=== PATIENT | male | born 1950 | race Caucasian/White ===

== ENCOUNTER 2017-06-19 14:47 | Emergency (ER) | payer MEDICARE, MEDICAID ==
[2017-06-19] MEDS ORDERED: NORMAL SALINE 1000 ML 1,000 ML IV ONE (15:06)
--- NOTE | 2017-06-19 15:11 | ER Document Report ---
ED Medical Screen (RME) - General Chief Complaint: Vomiting Stated Complaint: DIFFICULTY SWALLOWING Time Seen by Provider: 06/19/17 15:05 Notes: Patient states several weeks ago he went to his physician for trouble breathing. He states that his physician told him that he had "fluid on his lungs" and gave him an antibiotic. It was Levaquin. He states he then also received the flu shot. He states after this he had 3 or 4 days where he was very tired, slept all the time, and did not eat. He states he has lost approximately 15 pounds over the last several weeks. He states he continues to have some shortness of breath. He continues to be weak/dec appetite. He states that approximately 3 days ago his teeth were hurting and so he did not chew his food very well and believes some may become lodged. The following day he tried a couple bites of hot dog and then vomited up copious amounts of cylindrically formed substance. He states it appeared it was undigested food compacted into a cylinder shape. He states he is now having vomiting with any intake and is vomiting white foam. He also has epi/lower cp. +smoker/denies etoh. denies chronic med problems. TRAVEL OUTSIDE OF THE [place] IN LAST 30 DAYS: No - Related Data Allergies/Adverse Reactions: Penicillins Allergy (Unknown, Verified 06/19/17 14:50) Past Medical History - Past Medical History Cardiac Medical History: Reports: Hx Hypertension - MEDS Denies: Hx Coronary Artery Disease, Hx Heart Attack Pulmonary Medical History: Reports: Hx Asthma, Hx COPD, Hx Pneumonia Denies: Hx Bronchitis Neurological Medical History: Denies: Hx Cerebrovascular Accident, Hx Seizures Renal/ Medical History: Denies: Hx Peritoneal Dialysis Musculoskeltal Medical History: 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 HAND - Immunizations Hx Diphtheria, Pertussis, Tetanus Vaccination: Yes Physical Exam - Vital signs Vitals: Temp Pulse Resp BP Pulse Ox 98.2 F 95 20 133/70 H 99 06/19/17 14:50 06/19/17 14:50 06/19/17 14:50 06/19/17 14:50 06/19/17 14:50 Course - Vital Signs Vital signs: Temp Pulse Resp BP Pulse Ox 98.2 F 95 20 133/70 H 99 06/19/17 14:50 06/19/17 14:50 06/19/17 14:50 06/19/17 14:50 06/19/17 14:50
[2017-06-19 15:53] LABS: HEMATOCRIT 20.5 % (37.9-51.0); HGB HCT DIFFERENCE 0.5; MEAN CORPUSCULAR HEMOGLOBIN 37.4 pg (27.0-33.4); MEAN CORPUSCULAR HGB CONC 34.3 g/dL (32.0-36.0); MEAN CORPUSCULAR VOLUME 109 fl (80-97); RED BLOOD COUNT 1.88 10^6/uL (4.35-5.55); RED CELL DISTRIBUTION WIDTH 20.1 % (11.5-14.0); WHITE BLOOD COUNT 12.5 10^3/uL (4.0-10.5)
[2017-06-19 16:09] LABS: ALANINE AMINOTRANSFERASE 39 U/L (21-72); ALBUMIN 3.7 g/dL (3.5-5.0); ALKALINE PHOSPHATASE 47 U/L (38-126); ANION GAP 12 (5-19); ASPARTATE AMINO TRANSFERASE 21 U/L (17-59); BILIRUBIN,DIRECT 0.5 mg/dL (0.0-0.4); BILIRUBIN,TOTAL 1.1 mg/dL (0.2-1.3); BLOOD UREA NITROGEN 24 mg/dL (7-20); CARBON DIOXIDE 26 mmol/L (22-30); CHLORIDE 106 mmol/L (98-107); CREATININE RESULT 1.36 mg/dL (0.52-1.25); GLUCOSE 101 mg/dL (75-110); LIPASE 105.1 U/L (23-300); SODIUM 143.5 mmol/L (137-145); TOTAL PROTEIN 7.8 g/dL (6.3-8.2)
[2017-06-19 16:14] LABS: BAND NEUTROPHILS % (MANUAL) 1 % (3-5); BASOPHILS % (MANUAL) 4 % (0-2); EOSINOPHILS % (MANUAL) 0 % (0-6); LYMPHOCYTES % (MANUAL) 31 % (13-45); TOTAL CELLS COUNTED 100
--- NOTE | 2017-06-19 16:17 | RADIOLOGY REPORT (SQ) ---
EXAM DESCRIPTION: CHEST PA/LAT COMPLETED DATE/TIME: 06/19/2017 4:09 pm REASON FOR STUDY: cp/trouble swallowing COMPARISON: None. EXAM PARAMETERS: NUMBER OF VIEWS: two views TECHNIQUE: Digital Frontal and Lateral radiographic views of the chest acquired. RADIATION DOSE: NA LIMITATIONS: none FINDINGS: LUNGS AND PLEURA: No opacities, masses or pneumothorax. No pleural effusion. MEDIASTINUM AND HILAR STRUCTURES: No masses or contour abnormalities. HEART AND VASCULAR STRUCTURES: Heart normal size. No evidence for failure. BONES: No acute findings. HARDWARE: None in the chest. OTHER: No other significant finding. IMPRESSION: NO SIGNIFICANT RADIOGRAPHIC FINDING IN THE CHEST. TECHNICAL DOCUMENTATION: JOB ID: [id number] [employer]- All Rights Reserved
[2017-06-19 16:18] LABS: ANISOCYTOSIS 2+; HELMET CELLS SLIGHT; POIKILOCYTOSIS SLIGHT; TOXIC GRANULATION SLIGHT
[2017-06-19 16:19] LABS: OVALOCYTES SLIGHT
--- NOTE | 2017-06-19 19:27 | RADIOLOGY REPORT (SQ) ---
EXAM DESCRIPTION: BARIUM SWALLOW ESOPHAGUS COMPLETED DATE/TIME: 06/19/2017 5:25 pm REASON FOR STUDY: Unable to swallow, vomiting COMPARISON: None. TECHNIQUE: Under fluoroscopic guidance, patient ingested barium. Fluoroscopic spot images and routin e radiographic images acquired and stored on PACS. 12 MM BARIUM TABLET GIVEN: No LIMITATIONS: None. FLUOROSCOPY TIME: 1.52 minutes 16 images saved to PACS. FINDINGS: NEUROMUSCULAR COORDINATION OF SWALLOW: Normal. No aspiration. ESOPHAGEAL MOTILITY: Normal peristalsis. No esophageal spasm. ESOPHAGEAL MUCOSA: There is narrowing of the distal esophagus which could be related to a stricture o r mass. Contrast was identified within the stomach. There were proximal filling defects most consis tent with ingested food and secretions. GASTRO-ESOPHAGEAL JUNCTION: No hiatal hernia or reflux. NON-GI TRACT STRUCTURES: No significant finding. OTHER: No other significant finding. IMPRESSION: There is narrowing of the distal esophagus which could be related to a stricture or mass . Contrast was identified distally within the stomach. There are proximal filling defects most cons istent with ingested food and secretions. Other findings as noted above COMMENT: Quality ID [id number]: Final reports for procedures using fluoroscopy that document radiation exp osure indices, or exposure time and number of fluorographic images (if radiation exposure indices are not available) TECHNICAL DOCUMENTATION: JOB ID: [id number] [employer]- All Rights Reserved
--- NOTE | 2017-06-19 19:30 | ER Document Report ---
ED GI/ - General Chief Complaint: Vomiting Stated Complaint: DIFFICULTY SWALLOWING Time Seen by Provider: 06/19/17 15:05 Notes: He is having problems with vomiting, started yesterday. Denies symptoms leading up to the vomiting yesterday. Denies any abdominal pain. No diarrhea. Last bowel movement was this morning and normal. Has not had any blood in the vomitus and has not passed any blood in his stools. Has not passed any black stools. Denies any fever. Patient says that he had a respiratory infection a couple of weeks ago and was seen by a doctor in [place] who told him he had bronchitis and treated him with Levaquin. Patient has COPD and smokes about half a pack of cigarettes daily. He had some lung surgery in 2009 and a biopsy was taken and was told that it was benign. Denies any other surgeries. 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 Hypertension. No heart disease. Denies alcohol. Does smoke a half a pack a day. TRAVEL OUTSIDE OF THE [place] IN LAST 30 DAYS: No - Related Data Allergies/Adverse Reactions: Penicillins Allergy (Unknown, Verified 06/19/17 14:50) Past Medical History - Social History Smoking Status: Current Every Day Smoker Frequency of alcohol use: None Family History: Reviewed & Not Pertinent Patient has suicidal ideation: No Patient has homicidal ideation: No - Past Medical History Cardiac Medical History: Reports: Hx Hypertension - MEDS Denies: Hx Coronary Artery Disease, Hx Heart Attack Pulmonary Medical History: Reports: Hx Asthma, Hx COPD, Hx Pneumonia Denies: Hx Bronchitis Musculoskeltal Medical History: 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 HAND Past Surgical History: Reports: Other - Endoscopy in September, and colonoscopy about 3 years ago. - Immunizations Hx Diphtheria, Pertussis, Tetanus Vaccination: Yes Review of Systems - Review of Systems Notes: REVIEW OF SYSTEMS: CONSTITUTIONAL : Denies fever. EENT: Denies eye, ear, nose or mouth or throat pain or other symptoms. CARDIOVASCULAR: Denies chest pain. RESPIRATORY: Denies cough, chest congestion, or shortness of breath. GASTROINTESTINAL: See HPI. GENITOURINARY: Denies difficulty or painful urinating, urinary frequency, blood in urine. MUSCULOSKELETAL: Denies back or neck pain. Denies joint pain or swelling. SKIN: Denies rash or skin lesions. NEUROLOGICAL: Denies LOC or altered mental status. Denies headache. Denies sensory loss or motor deficits. ALL OTHER SYSTEMS REVIEWED AND NEGATIVE. Physical Exam - Vital signs Vitals: Temp Pulse Resp BP Pulse Ox 98.2 F 95 20 133/70 H 99 06/19/17 14:50 06/19/17 14:50 06/19/17 14:50 06/19/17 14:50 06/19/17 14:50 Interpretation: Normal - Notes Notes: PHYSICAL EXAMINATION: GENERAL: Well-appearing, in no acute distress. HEAD: Atraumatic, normocephalic. EYES: Pupils equal round and reactive to light, extraocular movements intact. ENT: oropharynx clear without exudates. Moist mucous membranes. NECK: Normal range of motion, supple. LUNGS: Breath sounds clear and equal bilaterally. HEART: Regular rate and rhythm without murmurs. ABDOMEN: Soft, nontender. No guarding or rebound. No masses felt. BACK: No tenderness throughout entire back. EXTREMITIES: Normal range of motion without pain. NEUROLOGICAL: Normal speech, normal gait. Normal sensory, motor, and reflex exams. Awake, alert, and oriented x3. Cranial nerves normal. PSYCH: Normal mood, normal affect. SKIN: Warm, dry, no rashes. Course - Re-evaluation Re-evalutation: 06/20/17 00:40 Transport is here to take patient. Patient is sleeping comfortably. No signs remain essentially normal. Stable for transfer. Sammi Sorenson MD - Vital Signs Vital signs: Temp Pulse Resp BP Pulse Ox 97.8 F 73 19 97/61 L 93 06/20/17 00:25 06/20/17 00:30 06/20/17 00:30 06/20/17 00:01 06/20/17 00:30 - Laboratory Result Diagrams: 06/19/17 15:15 06/19/17 15:15 Laboratory results interpreted by me: 06/19/17 06/19/17 06/19/17 15:15 15:15 17:35 WBC 12.5 H RBC 1.88 L Hgb 7.0 L Hct 20.5 L MCV 109 H MCH 37.4 H RDW 20.1 H Plt Count 50 L Seg Neuts % (Manual) 11 L Band Neutrophils % 1 L Monocytes % (Manual) 47 H Basophils % (Manual) 4 H Abs Neuts (Manual) 1.5 L Abs Monocytes (Manual) 5.9 H Abs Basophils (Manual) 0.5 H BUN 24 H Creatinine 1.36 H Est GFR (Non-Af Amer) 52 L Direct Bilirubin 0.5 H Crossmatch See Detail - Diagnostic Test Radiology reviewed: Image reviewed, Reports reviewed - Barium swallow was performed and shows stricture of the lower esophagus with significant edema, as well. Patient does pass a small amount of barium through. Radiologist says food bolus versus tissue mass. Radiology results interpreted by me: 06/19/17 19:34 Chest x-ray looks like COPD but otherwise unremarkable and normal. Discharge - Discharge Clinical Impression: Esophageal stricture Referrals: KEVON GODOY PA-C [Primary Care Provider] - Follow up as needed
[2017-06-19] MEDS ORDERED: NORMAL SALINE 250 ML IV PRN (20:33)
[2017-06-20 00:32] VITALS: BP 97/61
[2017-06-20 13:57] LABS: PATH REVIEW PATHOLOGIST REVIEWED
== END 2017-06-20 00:50 | disposition short-term general hospital (02) ==
LOC: ER 14:47
DX: K22.2 Esophageal obstruction (principal); R11.10 Vomiting, unspecified; J44.9 Chronic obstructive pulmonary disease, unspecified; F17.210 Nicotine dependence, cigarettes, uncomplicated; I10 Essential (primary) hypertension; Z88.0 Allergy status to penicillin
CPT/HCPCS: 99285; 86900; 86901; 36415; 36430; 86850; 83690; 85025; 80053; 86920; 71020; 74220; P9016; J7030

== ENCOUNTER 2017-09-05 15:11 | Emergency (ER) | payer MEDICARE, MEDICAID ==
[2017-09-05 15:18] VITALS: BP 117/81
--- NOTE | 2017-09-05 16:51 | ER Document Report ---
ED Medical Screen (RME) - General Chief Complaint: Medical Complaint Stated Complaint: NEEDS PORT CLEANED Time Seen by Provider: 09/05/17 16:47 Mode of Arrival: Ambulatory Information source: Patient Notes: 66 yo male had blood drawn from red double port at [facility] and it was slow coming out. changed the bandage on monday and could not get the red port flushed. He is here to have the red port flushed. Hx leukemia. [place] is chemo dr. Dr. Burgos in [place] knows him too. TRAVEL OUTSIDE OF THE [place] 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 - Immunizations Hx Diphtheria, Pertussis, Tetanus Vaccination: Yes Physical Exam - Vital signs Vitals: Temp Pulse Resp BP Pulse Ox 97.6 F 87 20 117/81 98 09/05/17 15:17 09/05/17 15:17 09/05/17 15:17 09/05/17 15:17 09/05/17 15:17 Course - Vital Signs Vital signs: Temp Pulse Resp BP Pulse Ox 97.6 F 87 20 117/81 98 09/05/17 15:17 09/05/17 15:17 09/05/17 15:17 09/05/17 15:17 09/05/17 15:17
--- NOTE | 2017-09-05 18:06 | ER Document Report ---
ED General - General Chief Complaint: Medical Complaint Stated Complaint: NEEDS PORT CLEANED Time Seen by Provider: 09/05/17 16:47 Mode of Arrival: Ambulatory Information source: Patient Notes: 66-year-old male presented to ED for complaint of red lumen to his Jeffrey is clogged and will not flush. He goes to [facility] [place] he stated his usually changes his dressings and flushes his ports but when Monday she tried to flush the red port it would not flush. She states she is changed all the dressings and. He states he goes to [place] for his chemo and Dr. Burgos and Bernabe Coon also knows him. His stated that they called the doctor and they told him that he needed TPA through the port to open it up. TRAVEL OUTSIDE OF THE [place] IN LAST 30 DAYS: No - HPI Onset: Other - Monday Onset/Duration: Persistent Quality of pain: No pain Severity: None Pain Level: Denies Associated symptoms: Other - The lumen of his Jeffrey does not flush Exacerbated by: Denies Relieved by: Denies Similar symptoms previously: No Recently seen / treated by doctor: Yes - Related Data Allergies/Adverse Reactions: Penicillins Allergy (Unknown, Verified 06/19/17 14:50) pregabalin [From Lyrica] Allergy (Verified 09/05/17 15:15) Past Medical History - General Information source: Patient - Social History Smoking Status: Former Smoker Cigarette use (# per day): No Chew tobacco use (# tins/day): No Smoking Education Provided: No Frequency of alcohol use: None Drug Abuse: None Lives with: Family Family History: Reviewed & Not Pertinent Patient has suicidal ideation: No Patient has homicidal ideation: No - Past Medical History Cardiac Medical History: Reports: None, Hx Hypertension - MEDS Pulmonary Medical History: Reports: Hx Asthma, Hx COPD, Hx Pneumonia EENT Medical History: Reports: None Neurological Medical History: Reports: None Endocrine Medical History: Reports: None Renal/ Medical History: Reports: None Malignancy Medical History: Reports Hx Leukemia GI Medical History: Reports: Hx Colonoscopy, Hx Endoscopy Musculoskeltal Medical History: 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 HAND Skin Medical History: Reports None Psychiatric Medical History: Reports: None Traumatic Medical History: Reports: None Surgical Hx: Negative Past Surgical History: Reports: None - Immunizations Hx Diphtheria, Pertussis, Tetanus Vaccination: Yes Review of Systems - Review of Systems Constitutional: No symptoms reported EENT: No symptoms reported Cardiovascular: No symptoms reported Respiratory: No symptoms reported Gastrointestinal: No symptoms reported Genitourinary: No symptoms reported Male Genitourinary: No symptoms reported Musculoskeletal: No symptoms reported Skin: No symptoms reported Hematologic/Lymphatic: Other - Red lumen of his Jeffrey will not flush Neurological/Psychological: No symptoms reported -: Yes All other systems reviewed and negative Physical Exam - Vital signs Vitals: Temp Pulse Resp BP Pulse Ox 97.6 F 87 20 117/81 98 09/05/17 15:17 09/05/17 15:17 09/05/17 15:17 09/05/17 15:17 09/05/17 15:17 Interpretation: Normal - General General appearance: Appears well, Alert - HEENT Head: Normocephalic, Atraumatic Eyes: Normal Pupils: PERRL - Respiratory Respiratory status: No respiratory distress Chest status: Nontender Breath sounds: Normal Chest palpation: Normal - Cardiovascular Rhythm: Regular Heart sounds: Normal auscultation Murmur: No - Abdominal Inspection: Normal Distension: No distension Bowel sounds: Normal Tenderness: Nontender Organomegaly: No organomegaly - Back Back: Normal, Nontender - Extremities General upper extremity: Normal inspection, Nontender, Normal color, Normal ROM , Normal temperature General lower extremity: Normal inspection, Nontender, Normal color, Normal ROM , Normal temperature, Normal weight bearing. No: Iraida's sign - Neurological Neuro grossly intact: Yes Cognition: Normal Orientation: AAOx4 [place] Coma Scale Eye Opening: Spontaneous Marylu Coma Scale Verbal: Oriented Marylu Coma Scale Motor: Obeys Commands [place] Coma Scale Total: 15 Speech: Normal Motor strength normal: LUE, RUE, LLE, RLE Sensory: Normal - Psychological Associated symptoms: Normal affect, Normal mood - Skin Skin Temperature: Warm Skin Moisture: Dry Skin Color: Normal Course - Re-evaluation Re-evalutation: 09/05/17 18:[address] Witt he stated to call Dr. Hart and find the exact procedure to do this and the doses to use. When I explained this to patient patient decided that he did not want to stay he if we are not used to doing this he does not want it done here and he will go home and have his oncology doctor care for his Jeffrey. - Vital Signs Vital signs: Temp Pulse Resp BP Pulse Ox 97.6 F 87 20 117/81 98 09/05/17 15:17 09/05/17 15:17 09/05/17 15:17 09/05/17 15:17 09/05/17 15:17 Discharge - Discharge Clinical Impression: clogged jeffrey red port Condition: Stable Disposition: HOME, SELF-CARE Additional Instructions: Please call your oncologist to have the red port of your Jeffrey unclogged. This is not something we normally do in the emergency room. I have spoken with the ER physician and he stated that I would need to call the surgeon to get the exact instructions for this. Plan to this to you and you stated you would rather not do it here if this is not something we usually do. Dated you would follow-up with your oncologist. FOLLOW-UP CARE: If you have been referred to a physician for follow-up care, call the physician s office for an appointment as you were instructed or within the next two days. If you experience worsening or a significant change in your symptoms, notify the physician immediately or return to the Emergency Department at any time for re-evaluation.
== END 2017-09-05 18:08 | disposition home or self-care (01) ==
LOC: ER 15:11
DX: T82.49XA Other complication of vascular dialysis catheter, initial encounter (principal); Z87.891 Personal history of nicotine dependence
CPT/HCPCS: 99283

== ENCOUNTER → 2017-11-09 | Outpatient (CLI) | payer MEDICARE, MEDICAID | LOC: RAD 12:47 | PROVIDERS: ATTEND Internal Medicine | DX: C92.A0 Acute myeloid leukemia with multilineage dysplasia, not having achieved remission (principal) ==

== ENCOUNTER → 2017-11-09 | Outpatient (CLI) | payer MEDICARE, MEDICAID ==
--- NOTE | 2017-11-09 14:37 | RADIOLOGY REPORT (SQ) ---
EXAM DESCRIPTION: MRI RT LOWER EXTREMITY WITHOUT COMPLETED DATE/TIME: 11/09/2017 1:50 pm REASON FOR STUDY: PAIN IN RIGHT FOOT M79.671 PAIN IN RIGHT FOOT COMPARISON: None. TECHNIQUE: Right ankle images acquired and stored on PACS. Multiplanar images include fat sensitive sequences as T1, fluid sensitive sequences as FST2/STIR, cartilage sensitive sequences as FSPD, and g radient echo sequences. LIMITATIONS: None. FINDINGS: BONE MARROW: No alteration of signal to suggest marrow replacement or edema. No occult fra cture. No large osteophytes. EFFUSIONS: No subtalar or tibiotalar effusions. No loose bodies. OSSEOUS ARTICULATIONS: Normal tibiotalar, subtalar, talonavicular and calcaneocuboid joints. TALAR DOME AND TIBIAL PLAFOND: Mild chondromalacia at the tibiotalar joint without talar dome abnorma lity ACHILLES TENDON: Intact without partial or full-thickness tear. No adjacent bursal fluid or edema. TIBIALIS ANTERIOR TENDON: Intact without edema at the 1st MT attachment. TIBIALIS POSTERIOR TENDON: Normal morphology and no edema at the navicular attachment. Moderate tend on sheath fluid. FLEXOR HALLUCIS LONGUS AND FLEXOR DIGITORUM TENDONS: Normal morphology. Moderate tendon sheath fluid . No edema of the os trigonum. PERONEUS LONGUS AND BREVIS TENDON: Peroneus longus intact. Longitudinal split in the peroneus brevis tendon at and distal to the lateral malleolus, best shown on axial images 10 through 17. No sublux ation. ATFL, CFL, PTFL: Intact. No thickening or signal alteration. No jj-ligamentous fluid. DELTOID LIGAMENT: Grossly intact. There is an old avulsion fragment off the distal tip medial malleo osmin on coronal image 17. TARSAL TUNNEL: No masses. No muscle atrophy. SINUS TARSI: No fluid. No reactive marrow edema or erosions. PLANTAR FASCIA: No signal alteration or tear. ADJACENT SOFT TISSUES: No masses. OTHER: No other significant finding. IMPRESSION: Fluid along the flexor hallucis and posterior tibial tendon sheaths without underlying t endinopathy. Longitudinal split in the peroneus brevis tendon distal to the lateral malleolus. TECHNICAL DOCUMENTATION: JOB ID: [id number] [employer]- All Rights Reserved Reading location - IP/workstation name: [email or web address]
== END ==
LOC: RAD 12:52
PROVIDERS: ATTEND Internal Medicine
DX: M79.671 Pain in right foot (principal)

== ENCOUNTER 2018-01-25 12:29 | Emergency (ER) | payer MEDICARE, MEDICAID ==
[2018-01-25] MEDS ORDERED: ASPIRIN 81 MG TABLET, CHEWABLE PO ONE (12:52)
--- NOTE | 2018-01-25 13:04 | ER Document Report ---
ED Medical Screen (RME) - General Mode of Arrival: Wheelchair Information source: Patient TRAVEL OUTSIDE OF THE [place] IN LAST 30 DAYS: No <TAMEKA MANJARREZ - Last Filed: 01/25/18 15:47> <KENNY PURDY - Last Filed: 01/25/18 21:47> - General Chief Complaint: Chest Pain Stated Complaint: CHEST PAIN Time Seen by Provider: 01/25/18 12:51 Notes: Patient is a 67-year-old male who presents to the emergency room today for complaints of chest pain. Patient recently finished chemotherapy in September for AML. Patient was recently seen in [place] for similar symptoms and was found to have a negative workup but was sent home on 2 L of home oxygen. Patient states pain increases with food. Patient denies any recent cardiac stress test or cardiac catheterization. I have greeted and performed a rapid initial assessment of this patient. A comprehensive ED assessment and evaluation of the patient, analysis of test results, and completion of the medical decision making process will be conducted by additional ED providers. Review of systems: Constitutional: No symptoms reported EENT: No symptoms reported Cardiovascular: Chest pain Respiratory: No symptoms reported Gastrointestinal: No symptoms reported Genitourinary: No symptoms reported Musculoskeletal: No symptoms reported Skin: No symptoms reported Hematologic/Lymphatic: No symptoms reported Neurological/Psychological: No symptoms reported Yes All other systems reviewed and negative PHYSICAL EXAM GENERAL: Alert, interacts well. No acute distress. HEAD: Normocephalic, atraumatic. EYES: Pupils equal, round, and reactive to light. Extraocular movements intact. ENT: Oral mucosa moist, tongue midline. NECK: Full range of motion. Supple. Trachea midline. LUNGS: Clear to auscultation bilaterally, no wheezes, rales, or rhonchi. Tachypneic. Appears mildly short of breath without pursed lip breathing. HEART: Tachycardic, regular rhythm. No murmurs, gallops, or rubs. ABDOMEN: Soft, mild LUQ and Epigastric tenderness with palpation. Non- distended. Bowel sounds present in all 4 quadrants. No guarding, rigidity, or rebound. EXTREMITIES: Moves all 4 extremities spontaneously. No edema, radial and dorsalis pedis pulses 2/4 bilaterally. No cyanosis. NEUROLOGICAL: Alert and oriented x3. Normal speech. PSYCH: Normal affect, normal mood. SKIN: Warm, dry, normal turgor. No rashes or lesions noted. Grayish pallor. (TAMEKA MANAJRREZ) - Related Data Allergies/Adverse Reactions: Penicillins Allergy (Unknown, Verified 01/25/18 12:30) pregabalin [From Lyrica] Allergy (Verified 01/25/18 12:30) Past Medical History - Social History Chew tobacco use (# tins/day): No Drug Abuse: None - Past Medical History Cardiac Medical History: Reports: Hx Hypertension - MEDS Denies: Hx Coronary Artery Disease, Hx Heart Attack Pulmonary Medical History: Reports: Hx Asthma, Hx COPD, Hx Pneumonia Denies: Hx Bronchitis Neurological Medical History: Denies: Hx Cerebrovascular Accident, Hx Seizures Renal/ Medical History: Denies: Hx Peritoneal Dialysis Malignancy Medical History: Reports Hx Leukemia GI Medical History: Reports: Hx Colonoscopy, Hx Endoscopy Musculoskeltal Medical History: 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 HAND Past Surgical History: Reports: Other - Endoscopy in September, and colonoscopy about 3 years ago. - Immunizations Hx Diphtheria, Pertussis, Tetanus Vaccination: Yes <TAMEKA MANJARREZ - Last Filed: 01/25/18 15:47> - Vital signs Vitals: Temp Pulse Resp BP Pulse Ox 98.1 F 119 H 22 H 97/78 L 95 01/25/18 12:44 01/25/18 12:44 01/25/18 12:44 01/25/18 12:44 01/25/18 12:44 Course - Laboratory Result Diagrams: 01/25/18 13:44 01/25/18 13:44 <TAMEKA MANJARREZ - Last Filed: 01/25/18 15:47> - Laboratory Result Diagrams: 01/25/18 13:44 01/25/18 13:44 <KENNY PURDY - Last Filed: 01/25/18 21:47> - Vital Signs Vital signs: Temp Pulse Resp BP Pulse Ox 98.3 F 119 H 20 123/78 97 01/25/18 18:32 01/25/18 12:44 01/25/18 18:01 01/25/18 18:01 01/25/18 18:01 - Laboratory Laboratory results interpreted by ct: 01/25/18 01/25/18 01/25/18 13:44 13:44 13:44 RBC 2.58 L Hgb 10.0 L Hct 29.4 L MCV 114 H MCH 38.7 H RDW 16.4 H Lymphocytes % (Manual) 2 L Monocytes % (Manual) 20 H Abs Lymphs (Manual) 0.1 L VBG pH 7.45 H VBG HCO3 32.7 H Chloride 96 L Carbon Dioxide 31 H Glucose 118 H Direct Bilirubin 0.5 H Creatine Kinase 21 L Albumin 3.4 L Doctor's Discharge <TAMEKA MANJARREZ - Last Filed: 01/25/18 15:47> <KENNY PURDY - Last Filed: 01/25/18 21:47> - Discharge Clinical Impression: Abdominal pain Condition: Stable Disposition: HOME, SELF-CARE Additional Instructions: As we discussed, your labs and heart tests look good today. I would continue current medicines. I would show Dr. Jiang those results including the hepatitis C antibody test which said that you were reactive. You may require a viral load test. Return to the ER for any chest pain, shortness of breath or any concerns or getting worse. Referrals: JAISON RENE MD [Primary Care Provider] - Follow up as needed Scribe Documentation - Scribe Written by Jone:: Kath Zurita, 01/25/2018 1548 acting as scribe for :: Zev <TAMEKA MANJARREZ - Last Filed: 01/25/18 15:47>
--- NOTE | 2018-01-25 13:53 | RADIOLOGY REPORT (SQ) ---
EXAM DESCRIPTION: CHEST SINGLE VIEW COMPLETED DATE/TIME: 01/25/2018 1:27 pm REASON FOR STUDY: chest pain COMPARISON: 06/19/2017 EXAM PARAMETERS: NUMBER OF VIEWS: One view. TECHNIQUE: Single frontal radiographic view of the chest acquired. RADIATION DOSE: NA LIMITATIONS: None. FINDINGS: LUNGS AND PLEURA: There is mild hyperexpansion of the lungs. No infiltrate or effusion is present. MEDIASTINUM AND HILAR STRUCTURES: No masses. Contour normal. HEART AND VASCULAR STRUCTURES: Heart normal in size. Normal vasculature. BONES: No acute findings. HARDWARE: Small catheter is present on the right with the tip in the superior vena cava near the righ t atrium. OTHER: No other significant finding. IMPRESSION: Mild chronic lung changes with no acute cardiopulmonary disease. TECHNICAL DOCUMENTATION: JOB ID: [id number] [employer]- All Rights Reserved Reading location - IP/workstation name: [email or web address]
[2018-01-25 14:01] LABS: HEMATOCRIT 29.4 % (37.9-51.0); MEAN CORPUSCULAR HEMOGLOBIN 38.7 pg (27.0-33.4); MEAN CORPUSCULAR HGB CONC 33.9 g/dL (32.0-36.0); PLATELET COUNT 327 10^3/uL (150-450); RED BLOOD COUNT 2.58 10^6/uL (4.35-5.55); RED CELL DISTRIBUTION WIDTH 16.4 % (11.5-14.0); VENOUS BLOOD BASE EXCESS 7.4 mmol/L; VENOUS BLOOD HCO3 32.7 mmol/L (20-32); VENOUS BLOOD PCO2 48.4 mmHg (35-63); VENOUS BLOOD PH 7.45 (7.30-7.42); WHITE BLOOD COUNT 7.1 10^3/uL (4.0-10.5)
[2018-01-25 14:08] LABS: MEAN CORPUSCULAR VOLUME 114 fl (80-97)
[2018-01-25 14:28] LABS: ALANINE AMINOTRANSFERASE 55 U/L (21-72); ALBUMIN 3.4 g/dL (3.5-5.0); ALKALINE PHOSPHATASE 49 U/L (38-126); ANION GAP 10 (5-19); ASPARTATE AMINO TRANSFERASE 48 U/L (17-59); BILIRUBIN,DIRECT 0.5 mg/dL (0.0-0.4); BLOOD UREA NITROGEN 18 mg/dL (7-20); CALCIUM 10.1 mg/dL (8.4-10.2); CARBON DIOXIDE 31 mmol/L (22-30); CHLORIDE 96 mmol/L (98-107); CREATINE KINASE 21 U/L (55-170); GLUCOSE 118 mg/dL (75-110); LIPASE 209.9 U/L (23-300); POTASSIUM 4.3 mmol/L (3.6-5.0); SODIUM 137.3 mmol/L (137-145); TOTAL PROTEIN 7.1 g/dL (6.3-8.2)
[2018-01-25] MEDS ORDERED: NORMAL SALINE 1000 ML 1,000 ML IV ONE (14:29)
[2018-01-25 14:43] LABS: ABSOLUTE LYMPHOCYTES# (MANUAL) 0.1 10^3/uL (0.5-4.7); ABSOLUTE MONOCYTES # (MANUAL) 1.4 10^3/uL (0.1-1.4); ABSOLUTE NEUTROPHILS# (MANUAL) 5.5 10^3/uL (1.7-8.2); ANISOCYTOSIS 1+; BAND NEUTROPHILS % (MANUAL) 5 % (3-5); BASOPHILS % (MANUAL) 0 % (0-2); CREATINE KINASE MB < 0.22 ng/mL (<4.55); EOSINOPHILS % (MANUAL) 0 % (0-6); LYMPHOCYTES % (MANUAL) 2 % (13-45); MONOCYTES % (MANUAL) 20 % (3-13); SEGMENTED NEUTROPHILS % (MAN) 73 % (42-78); TOTAL CELLS COUNTED 100; TOXIC GRANULATION SLIGHT; TOXIC VACUOLATION PRESENT; TROPONIN I < 0.012 ng/mL
[2018-01-25 14:44] LABS: PLATELET COMMENT ADEQUATE; PLATELET LARGE PRESENT
--- NOTE | 2018-01-25 16:24 | ER Document Report ---
ED General - General Chief Complaint: Chest Pain Stated Complaint: CHEST PAIN Time Seen by Provider: 01/25/18 12:51 Mode of Arrival: Wheelchair Information source: Patient Notes: This is a 67-year-old male with a history of COPD (recently placed on oxygen), AML (currently in remission) who has a history of chronic abdominal pain and was recently hospitalized at both [facility] and [facility] on [address] for approximately a week and total for abdominal pain. CTs as well as other workup are reported by him as negative at that time. He was seen by the primary care doctor today in the office who was concerned about the possibility of chest pain and EKG changes. Patient currently denies any chest pain or shortness of breath at this time and is comfortable. TRAVEL OUTSIDE OF THE [place] IN LAST 30 DAYS: No - HPI Onset: Other - Past month Onset/Duration: Gradual Quality of pain: No pain Severity: None Pain Level: Denies Associated symptoms: denies: Chest pain, Fever, Shortness of breath Exacerbated by: Denies Relieved by: Denies Similar symptoms previously: Yes Recently seen / treated by doctor: Yes - Related Data Allergies/Adverse Reactions: Penicillins Allergy (Unknown, Verified 01/25/18 12:30) pregabalin [From Lyrica] Allergy (Verified 01/25/18 12:30) Past Medical History - General Information source: Patient - Social History Smoking Status: Former Smoker Cigarette use (# per day): No Chew tobacco use (# tins/day): No Frequency of alcohol use: None Drug Abuse: None Lives with: Spouse/Significant other Family History: Reviewed & Not Pertinent Patient has suicidal ideation: No Patient has homicidal ideation: No - Past Medical History Cardiac Medical History: Reports: Hx Hypertension - MEDS Denies: Hx Coronary Artery Disease, Hx Heart Attack Pulmonary Medical History: Reports: Hx Asthma, Hx COPD, Hx Pneumonia Denies: Hx Bronchitis Neurological Medical History: Denies: Hx Cerebrovascular Accident, Hx Seizures Renal/ Medical History: Denies: Hx Peritoneal Dialysis Malignancy Medical History: Reports Hx Leukemia GI Medical History: Reports: Hx Colonoscopy, Hx Endoscopy Musculoskeltal Medical History: 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 HAND Past Surgical History: Reports: Other - Endoscopy in September, and colonoscopy about 3 years ago. - Immunizations Hx Diphtheria, Pertussis, Tetanus Vaccination: Yes Review of Systems - Review of Systems Constitutional: denies: Chills, Fever EENT: No symptoms reported Cardiovascular: No symptoms reported Respiratory: No symptoms reported Gastrointestinal: See HPI Genitourinary: No symptoms reported Male Genitourinary: No symptoms reported Musculoskeletal: No symptoms reported Skin: No symptoms reported Hematologic/Lymphatic: No symptoms reported Neurological/Psychological: No symptoms reported Physical Exam - Vital signs Vitals: Temp Pulse Resp BP Pulse Ox 98.1 F 119 H 22 H 97/78 L 95 01/25/18 12:44 01/25/18 12:44 01/25/18 12:44 01/25/18 12:44 01/25/18 12:44 Notes: Physical exam: GENERAL: Chronically ill-appearing man is 67 years old, 3, no acute distress HEAD: Atraumatic, normocephalic. EYES: Pupils equal round and reactive to light, extraocular movements intact, sclera anicteric, conjunctiva are normal. ENT: TMs normal, nares patent, oropharynx clear without exudates. Moist mucous membranes. NECK: Normal range of motion, supple without obvious mass or JVD. LUNGS: Breath sounds clear to auscultation bilaterally and equal. No wheezes rales or rhonchi. HEART: Regular rate and rhythm without murmurs, rubs or gallops. ABDOMEN: Soft, normoactive bowel sounds. No tenderness to palpation. No guarding, no rebound. No masses appreciated. EXTREMITIES: Normal range of motion, no pitting or edema. No clubbing or cyanosis. NEUROLOGICAL: Cranial nerves II through XII grossly intact. Normal speech, moving all extremities. PSYCH: Normal mood, normal affect. SKIN: Warm, Dry, normal turgor, no rashes or lesions noted. Course - Re-evaluation Re-evalutation: 01/25/18 18:38 Note: Patient denies he ever had chest pain. He has had a long history of chronic abdominal pain. That has not changed. His initial troponin and EKG look good. He refused a repeat troponin. I have had a long discussion with him and he like to go home. His is at the bedside and she agrees and will follow up with the primary care doctor. - Vital Signs Vital signs: Temp Pulse Resp BP Pulse Ox 98.3 F 119 H 20 123/78 97 01/25/18 18:32 01/25/18 12:44 01/25/18 18:01 01/25/18 18:01 01/25/18 18:01 - Laboratory Result Diagrams: 01/25/18 13:44 01/25/18 13:44 Laboratory results interpreted by me: 01/25/18 01/25/18 01/25/18 13:44 13:44 13:44 RBC 2.58 L Hgb 10.0 L Hct 29.4 L MCV 114 H MCH 38.7 H RDW 16.4 H Lymphocytes % (Manual) 2 L Monocytes % (Manual) 20 H Abs Lymphs (Manual) 0.1 L VBG pH 7.45 H VBG HCO3 32.7 H Chloride 96 L Carbon Dioxide 31 H Glucose 118 H Direct Bilirubin 0.5 H Creatine Kinase 21 L Albumin 3.4 L - Diagnostic Test Radiology reviewed: Image reviewed, Reports reviewed - Consistent with COPD, no acute infiltrates or effusions. - EKG Interpretation by Me Rate: Tachycardia Rhythm: NSR - EKG shows sinus tachycardia with a ventricular rate of 113, no acute ST-T wave changes Discharge - Discharge Clinical Impression: Abdominal pain Condition: Stable Disposition: HOME, SELF-CARE Additional Instructions: As we discussed, your labs and heart tests look good today. I would continue current medicines. I would show Dr. Jiang those results including the hepatitis C antibody test which said that you were reactive. You may require a viral load test. Return to the ER for any chest pain, shortness of breath or any concerns or getting worse. Referrals: JAISON RENE MD [Primary Care Provider] - Follow up as needed
[2018-01-25 19:07] VITALS: BP 123/78
--- NOTE | 2018-01-25 22:55 | EKG REPORT ---
SEVERITY:- BORDERLINE ECG - SINUS TACHYCARDIA PROBABLE LEFT ATRIAL ABNORMALITY : Confirmed by: Elaine Ruffin MD 25-Jan-2018 22:54:16
[2018-01-26 11:24] LABS: PATH REVIEW PATHOLOGIST REVIEWED
== END 2018-01-25 19:07 | disposition home or self-care (01) ==
LOC: ER 12:29
DX: R10.9 Unspecified abdominal pain (principal); G89.29 Other chronic pain; R07.9 Chest pain, unspecified; J44.9 Chronic obstructive pulmonary disease, unspecified; Z99.81 Dependence on supplemental oxygen; Z85.6 Personal history of leukemia; Z87.891 Personal history of nicotine dependence; I10 Essential (primary) hypertension; Z79.899 Other long term (current) drug therapy
CPT/HCPCS: 93005; 99285; 96360; 36415; 87040; 82553; 82550; 83690; 85025; 80053; 84484; 82803; 83605; 71045; 93010; A9270; J7030

== ENCOUNTER → 2018-03-23 | Outpatient (CLI) | payer MEDICARE, MEDICAID ==
[2018-03-23 12:22] LABS: HEMATOCRIT 32.3 % (37.9-51.0); HEMOGLOBIN 10.6 g/dL (13.5-17.0); MEAN CORPUSCULAR HEMOGLOBIN 39.4 pg (27.0-33.4); MEAN CORPUSCULAR HGB CONC 32.7 g/dL (32.0-36.0); PLATELET COUNT 227 10^3/uL (150-450); RED BLOOD COUNT 2.68 10^6/uL (4.35-5.55); RED CELL DISTRIBUTION WIDTH 17.8 % (11.5-14.0); WHITE BLOOD COUNT 2.6 10^3/uL (4.0-10.5)
[2018-03-23 12:28] LABS: MEAN CORPUSCULAR VOLUME 121 fl (80-97)
[2018-03-23 12:50] LABS: ALANINE AMINOTRANSFERASE 64 U/L (21-72); ALBUMIN 4.1 g/dL (3.5-5.0); ALKALINE PHOSPHATASE 70 U/L (38-126); ANION GAP 15 (5-19); ASPARTATE AMINO TRANSFERASE 56 U/L (17-59); BILIRUBIN,DIRECT 0.5 mg/dL (0.0-0.4); BILIRUBIN,TOTAL 1.3 mg/dL (0.2-1.3); BLOOD UREA NITROGEN 15 mg/dL (7-20); CALCIUM 9.7 mg/dL (8.4-10.2); CARBON DIOXIDE 27 mmol/L (22-30); CHLORIDE 104 mmol/L (98-107); GLUCOSE 99 mg/dL (75-110); POTASSIUM 4.4 mmol/L (3.6-5.0); SODIUM 146.1 mmol/L (137-145); TOTAL PROTEIN 7.6 g/dL (6.3-8.2)
[2018-03-23 12:57] LABS: ABSOLUTE LYMPHOCYTES# (MANUAL) 0.8 10^3/uL (0.5-4.7); ABSOLUTE MONOCYTES # (MANUAL) 0.4 10^3/uL (0.1-1.4); ABSOLUTE NEUTROPHILS# (MANUAL) 1.2 10^3/uL (1.7-8.2); BASOPHILS % (MANUAL) 1 % (0-2); EOSINOPHILS % (MANUAL) 5 % (0-6); LYMPHOCYTES % (MANUAL) 29 % (13-45); MONOCYTES % (MANUAL) 16 % (3-13); SEGMENTED NEUTROPHILS % (MAN) 48 % (42-78); TOTAL CELLS COUNTED 100
[2018-03-23 12:58] LABS: ANISOCYTOSIS 2+; HYPOCHROMASIA SLIGHT; POLYCHROMASIA SLIGHT; STOMATOCYTES 1+; TOXIC GRANULATION SLIGHT
[2018-03-23 13:16] LABS: PLATELET COMMENT ADEQUATE
[2018-03-25 06:15] LABS: HEPATITIS B CORE AB TOT Negative (Negative); HEPATITIS B SURFACE AB QUAL Non Reactive (.)
[2018-03-26 10:54] LABS: PATH REVIEW PATHOLOGIST REVIEWED
[2018-03-26 13:37] LABS: HEPATITIS C QUANTITATION 2650000 IU/mL (.)
[2018-03-27 07:40] LABS: HCV FIBROSURE ALT P5P 58 IU/L (0-55); HCV FIBROSURE GGT 48 IU/L (0-65); HCV FIBROSURE HAPTOGLOBIN 73 mg/dL (34-200); NECROINFLAM ACTIVITY GRADE A1-A2 (.); NECROINFLAMM ACTIVITY SCORE 0.46 (0.00-0.17)
== END ==
LOC: OD 11:22
PROVIDERS: ATTEND Physician Assistant Surgical
DX: B18.2 Chronic viral hepatitis C (principal); R11.2 Nausea with vomiting, unspecified
CPT/HCPCS: 36415; 80053; 81270; 82172; 82247; 82977; 83010; 83883; 84460; 85025; 86704; 86706; 87522

== ENCOUNTER → 2018-03-27 | Outpatient (CLI) | payer MEDICARE, MEDICAID ==
--- NOTE | 2018-03-27 10:34 | RADIOLOGY REPORT (SQ) ---
EXAM DESCRIPTION: U/S ABDOMEN LIMITED W/O DOP COMPLETED DATE/TIME: 03/27/2018 9:04 am REASON FOR STUDY: CHRONIC VIRAL HEP C (B18.2) B18.2 CHRONIC VIRAL HEPATITIS C COMPARISON: None. TECHNIQUE: Dynamic and static grayscale images acquired of the abdomen and recorded on PACS. Ramino cassandra selected color Doppler and spectral images recorded. LIMITATIONS: None. FINDINGS: PANCREAS: No masses. Visualized pancreatic duct normal caliber. LIVER: Normal size. 16.1 cm. Normal echotexture. No masses. LIVER VASCULATURE: Normal directional flow of the main portal vein and hepatic veins. GALLBLADDER: No stones. Normal wall thickness. No pericholecystic fluid. ULTRASOUND-DETECTED LOPEZ'S SIGN: Negative. INTRAHEPATIC DUCTS AND COMMON DUCT: CBD and intrahepatic ducts normal caliber. No filling defects. INFERIOR VENA CAVA: Normal flow. AORTA: No aneurysm. RIGHT KIDNEY: Normal size. Normal echogenicity. No hydronephrosis. Multiple simple cortical cysts . 2 largest measure 5.2 and 4.8 cm. PERITONEAL AND RIGHT PLEURAL SPACE: No ascites or effusions. OTHER: No other significant findings. IMPRESSION: Simple cortical cysts right kidney. Study is otherwise normal. TECHNICAL DOCUMENTATION: JOB ID: [id number] [employer]- All Rights Reserved Reading location - IP/workstation name: [email or web address]
== END ==
LOC: RAD 08:23
PROVIDERS: ATTEND Internal Medicine Gastroenterology
DX: B18.2 Chronic viral hepatitis C (principal); N28.1 Cyst of kidney, acquired
CPT/HCPCS: 76705

== ENCOUNTER → 2018-05-30 | Outpatient (CLI) | payer MEDICARE, MEDICAID ==
--- NOTE | 2018-05-30 15:24 | RADIOLOGY REPORT (SQ) ---
EXAM DESCRIPTION: CTA CHEST COMPLETED DATE/TIME: 05/30/2018 2:59 pm REASON FOR STUDY: R06.02 SHORTNESS OF BREATH R06.02 SHORTNESS OF BREATH difficulty breathing, chest heaviness COMPARISON: Abdominal ultrasound 03/27/2018 TECHNIQUE: CT scan of the chest performed using helical scanning technique with dynamic intravenous contrast injection. Images reviewed with lung, soft tissue and bone windows. Reconstructed coronal and sagittal MPR images reviewed. Additional 3 dimensional post-processing performed to develop Maximal Intensity Projection images (SC P). All images stored on PACS. All CT scanners at this facility use dose modulation, iterative reconstruction, and/or weight based d osing when appropriate to reduce radiation dose to as low as reasonably achievable (ALARA). [facility]: Dose Right [facility]: CareDose [facility]: Dose Right [facility]: Teradose 4D [facility]: Snipshot CONTRAST TYPE AND DOSE: contrast/concentration: Isovue 350.00 mg/ml; Total Contrast Delivered: 63.0 ml; Total Saline Delivered: 108.0 ml Contrast bolus optimized for the pulmonary arteries. Not diagnostic for the aorta. RENAL FUNCTION: Creatinine 1.2 RADIATION DOSE: CT Rad equipment meets quality standard of care and radiation dose reduction techniq ues were employed. CTDIvol: 11.3 - 11.3 mGy. DLP: 463 mGy-cm. . LIMITATIONS: None. FINDINGS: LUNGS AND PLEURA: Post left upper lobectomy. Lungs are hyperinflated and hyperlucent from obstructive disease. No acute infiltrates. No pleural effusion or pneumothorax. AORTA AND GREAT VESSELS: No aneurysm. Contrast bolus not optimized for the aorta. HEART: No pericardial effusion. No significant coronary artery calcifications. PULMONARY ARTERIES: No emboli visualized in the main pulmonary arteries or the segmental branches. HILAR AND MEDIASTINAL STRUCTURES: No identified masses or abnormal nodes. HARDWARE: None in the chest. UPPER ABDOMEN: Right renal cortical cysts. THYROID AND OTHER SOFT TISSUES: No masses. No adenopathy. BONES: No acute or significant finding. 3D MIPS: Confirm above findings. OTHER: No other significant finding. IMPRESSION: Post left upper lobectomy. Obstructive lung disease. No CT angio evidence of acute pul monary emboli COMMENT: Quality ID # [id number]: Final reports with documentation of one or more dose reduction techniques (e.g., Automated exposure control, adjustment of the mA and/or kV according to patient size, use of iterative reconstruction technique) TECHNICAL DOCUMENTATION: JOB ID: [id number] [employer]- All Rights Reserved Reading location - IP/workstation name: [email or web address]
== END ==
LOC: RAD 15:07
PROVIDERS: ATTEND Internal Medicine
DX: J44.9 Chronic obstructive pulmonary disease, unspecified (principal); R06.02 Shortness of breath
CPT/HCPCS: 71275; 82565